=== PATIENT | male | born 1975 | race Caucasian/White ===

== ENCOUNTER → 2019-09-19 | Outpatient (CLI) | payer BC ==
[~2019-09-19] MED LIST: ATOR40TA59 PO; CELE100C PO; IOHEXOL 180 MG/ML 10 ML VIAL. ONE; METO25TA4 PO; methylPREDNISolone ACETATE 40 MG/ML VIAL. ONE; methylPREDNISolone ACETATE 80 MG/ML VIAL. ONE
--- NOTE | 2019-09-19 11:32 | PAIN ---
DATE OF SERVICE: 09/19/2019 INITIAL CONSULTATION FOR PAIN CLINIC CHIEF COMPLAINT: Low back and left lower extremity pain. HISTORY OF PRESENT ILLNESS: This is a 44-year-old male who presents with history of pain in the low back, left lower extremity for many years, worse since 04/2019, gradually increasing, not a result of any specific injury or action he is aware of. The patient reports he has had 2 lumbar surgeries, one in 2018 and the other one in [address] Joselo Cochran, which did well with the time, but the pain has been returning now for about the past 5 months. The patient reports no loss of motor function, but significant fatigability of the left lower extremity. The patient describes the pain as constant, stabbing in the back, shooting and radiating into the left lower extremity, posterior gluteus, lateral thigh, anterior thigh, posterior thigh, posterior calf, and into the foot on the lateral aspect, worse with walking, standing, changing positions, better with sitting or lying down. The patient reports it awakens him from sleep at night at least once or twice, does not affect his bowel or bladder control or his ability to walk. The patient has had epidural injections in the past as well as chiropractic treatment more recently and doing exercise on his own, all of which have been helpful, but only temporarily with the exercise and the injections were helpful before the surgery. The patient reports he is taking Celebrex daily, which does decrease the pain, but only by about 25%. The patient did have MRI scan dated 09/05/2019 which shows previous surgery from L3-S1 with diffuse bulging annulus at L4-5 with focal central left paracentral disk protrusion, narrowing of the left lateral recess on the left. L5-S1 shows a focal left paracentral disk protrusion as well and narrowing of the left lateral recess. The patient reports no loss of function, but significant fatigability. He describes his disability rating from 0-10, 10 being the worst, as a 7 with family home responsibilities and recreation and life support activities, 6 with social activity and occupation, 5 with sexual behavior, and 4 with self-care activities. PAST MEDICAL HISTORY: Significant for arthritis and hyperlipidemia. PAST SURGICAL HISTORY: Includes right shoulder surgery in 1993, tonsillectomy in 2018, and lumbar surgery in 2013 and 2007. CURRENT MEDICATIONS: Include Celebrex, alprazolam, atorvastatin, and sildenafil. ALLERGIES: The patient has no known drug allergies. FAMILY HISTORY: Significant for no major medical conditions or history he is aware of. SOCIAL HISTORY: The patient does not smoke, but he is chewing tobacco for the past 20 years. He drinks alcohol about once a week. He does not use any illegal, illicit, or recreational drugs. He is , lives with his spouse, has 2 children living at home. 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 REVIEW OF SYSTEMS: The patient's review of systems is positive for those items mentioned in history of present illness. All systems reviewed and otherwise negative. It is complete, full and well documented on the patient's chart. PHYSICAL EXAMINATION: VITAL SIGNS: The patient's blood pressure 136/93, pulse 80, respirations 16, temperature is 98.2 degrees Fahrenheit, height is 73.5 inches, and weight is 251 pounds. GENERAL: The patient is awake, alert, oriented, appropriate, very pleasant demeanor. HEENT: Head shows normocephalic, atraumatic. Extraocular movements are intact and symmetrical. Oral cavity: Mucous membranes moist and pink. Dentition is intact. NECK: Shows anterior throat supple without palpable lymphadenopathy noted. Swallow reflex symmetrical. CHEST: Shows normal on inspection. Breath sounds are clear to auscultation bilaterally. HEART: Shows S1, S2 clear. No murmurs auscultated. ABDOMEN: Soft, nontender, nondistended. No palpable organomegaly is noted. No rebound or guarding demonstrated. BACK: Shows spine grossly in the midline. Normal-appearing thoracic kyphosis and flattening of lumbar lordotic curvature with well-healed surgical scarring noted in the midline. Lumbar paraspinous muscle shows symmetrical on inspection, with palpation shows some mild tenderness throughout the upper, middle and lower distribution of paraspinous muscles bilaterally, but only diffusely without radiation. The patient shows no trigger points. No atrophy or hypertrophy. No asymmetry, no tenderness over the spinous processes, sacrum or sacroiliac regions. The patient does show good rotational motion of lumbar spine, both laterally greater than 10 degrees right and left as well as extension greater than 10 degrees, forward flexion 45 degrees without significant difficulty. EXTREMITIES: The patient's lower extremities show deep tendon reflexes 2+ in the patellar, 1+ tendo-calcaneus tendons. Motor exam is approximately 4 on a scale of 5 on the left with dorsiflexion, extension, quadriceps and hamstring flexion and 5/5 on the right. Peripheral pulses are 1+ posterior tibia. No peripheral edema is noted. Lower extremities are warm and dry to touch, equal in color and appearance. Straight leg raising noted to be mildly positive on the left at about 35-40 degrees, decreased with knee flexion, right side is negative. Gaenslen's and Elmer maneuvers are negative bilaterally. The patient is able to stand, stand on his toes without difficulty or loss of balance, walks with a normal-appearing gait, does not appear to favor the right or left lower extremity significantly with ambulation. SKIN: Shows warm and dry, good turgor. No edema. No sores, rashes or bruising. IMPRESSION: 1. This is a 44-year-old male with approximate 5-month history of recently increasing pain, low back and into the left lower extremity. 2. MRI scan of lumbar spine as noted. 3. Arthritis. PLAN: Options were discussed with the patient including conservative medical managements, physical therapies, and interventional techniques and he would like to proceed with interventional technique. We discussed a lumbar epidural steroid injection using descriptions as well as anatomical models to describe the procedure. Risks were then discussed including, but not limited to bleeding, infection, possibility of epidural hematoma, subsequent neurological compromise, dural puncture, headaches, spinal cord and/or nerve damage, side effects of steroid medication and poor results regarding pain control. The patient understands and wished to proceed. The patient will return to clinic in approximately 2 weeks for followup. He was counseled as to the return appointment, activity levels, and side effects to be aware of. DIAGNOSES: Lumbar radiculopathy with lumbar degenerative disk disease, lumbar spinal stenosis, and lumbar post-laminectomy syndrome. Treated with lumbar epidural steroid injection, translaminar approach at the L5-S1 level using C-arm fluoroscopic guidance under sterile prep and drape using local anesthetic. MEDICATION INJECTED: A total of 120 mg Depo-Medrol plus 10 mL of preservative-free normal saline and 2 mL of contrast. CONDITION AT DISCHARGE: Stable. The patient tolerated the procedure well, had no complications. TIM CAMPBELL MD DR: Miguel JOB#: [id number] / [id number] ecc ,
== END ==
LOC: PNCL 08:03
PROVIDERS: ATTEND Anesthesiology
DX: M51.16 Intervertebral disc disorders with radiculopathy, lumbar region (principal); M48.061 Spinal stenosis, lumbar region without neurogenic claudication; M96.1 Postlaminectomy syndrome, not elsewhere classified; E78.5 Hyperlipidemia, unspecified; Z87.39 Personal history of other diseases of the musculoskeletal system and connective tissue; Z98.890 Other specified postprocedural states; Z72.89 Other problems related to lifestyle; Z87.891 Personal history of nicotine dependence
CPT/HCPCS: 62323; J1030; J1040; Q9965

== ENCOUNTER → 2019-10-03 | Outpatient (CLI) | payer BC ==
--- NOTE | 2019-10-03 09:02 | PAIN ---
DATE OF SERVICE: 10/03/2019 PROGRESS NOTE FOR PAIN CLINIC DIAGNOSES: Lumbar radiculopathy with lumbar degenerative disk disease and lumbar spinal stenosis, lumbar post-laminectomy syndrome. HISTORY OF PRESENT ILLNESS: The patient is a 44-year-old male who returns for followup status post lumbar epidural steroid injection x 1. The patient reports about 25% improvement in the low back and left lower extremity. The patient reports there has been increase in activity with greater ease and comfort, walking greater distances and sleeping better, occasionally awakens him from sleep but very rarely now. The patient reports still some pain in the low back and left leg, it does not travel quite as far in the left leg only to the mid calf and into the foot as it was previously and across the low back into the posterior gluteus on the left, posterior thigh and calf to mid calf. The patient reported aching and dull, radiating, worse with walking, standing, changing positions, again better with sitting or lying down. The patient has recently purchased a traction device, which he reports he has been using at home and does believe this is helpful as well. The patient reports pain is 7 on a scale of 10 at its worst over the past week, 5 on average, 1 at its least and is a 5 today. The patient reports no new motor or sensory deficits, no new bowel or bladder incontinence or other complaints. PHYSICAL EXAMINATION: VITAL SIGNS: The patient's blood pressure 140/90, pulse 67, respirations 20, temperature 98.2 degrees Fahrenheit, weight is 251 pounds. GENERAL: The patient is awake, alert, oriented, appropriate, very pleasant demeanor. HEENT: Shows normocephalic, atraumatic. Extraocular movements are intact and symmetrical. Oral cavity: Mucous membranes moist and pink. Dentition is intact. NECK: Shows anterior throat supple without palpable lymphadenopathy noted. Swallow reflex symmetrical. CHEST: Shows normal on inspection. Breath sounds are clear bilaterally. HEART: Shows S1, S2 clear. ABDOMEN: Soft, nontender, nondistended. No palpable organomegaly is noted. No rebound or guarding demonstrated. BACK: Shows spine grossly in the midline. Normal appearing thoracic kyphosis and flattening of lumbar lordotic curvature with well-healed surgical scar noted. Lumbar paraspinous muscle shows symmetrical on inspection, with palpation shows some moderate tenderness diffusely without radiation. The patient has good rotational motion of the lumbar spine, both laterally as well as extension and flexion without significant increase in pain. EXTREMITIES: Lower extremities show deep tendon reflexes 2+ in the patellar, 1+ in the tendo-calcaneus tendons. Motor exam is 4 on a scale of 5 on the left with dorsiflexion, extension, 5/5 on the right. Peripheral pulses are 1+ posterior tibia. No peripheral edema bilaterally. Options were discussed with the patient. The patient's old chart was reviewed as his current medication regimen updated. Current review of systems updated today as well. We will proceed with a second in a series of lumbar epidural steroid injection today with fluoroscopic guidance. Risks were again discussed including, but not limited to bleeding, infection, possibility of epidural hematoma, subsequent neurological compromise, dural puncture, headaches, spinal cord and/or nerve damage, side effects of steroid medication and poor results regarding pain control. The patient understands and wished to proceed. The patient will return to clinic in approximately 2 weeks for followup. She was counseled on return appointment, activity level and side effects to be aware of. DIAGNOSIS: Lumbar radiculopathy with lumbar degenerative disk disease, lumbar spinal stenosis and lumbar post-laminectomy syndrome. PROCEDURE: Lumbar epidural steroid injection, translaminar approach L5-S1 level using C-arm fluoroscopic guidance under sterile prep and drape using local anesthetic. MEDICATION INJECTED: A total of 120 mg Depo-Medrol plus 10 mL of preservative-free normal saline and 2 mL of contrast. CONDITION AT DISCHARGE: Stable. The patient tolerated procedure well, had no complications. TIM CAMPBELL MD DR: LOCO/karissa JOB#: [id number] / [id number]
== END ==
LOC: PNCL 08:03
PROVIDERS: ATTEND Anesthesiology
DX: M51.16 Intervertebral disc disorders with radiculopathy, lumbar region (principal); M48.061 Spinal stenosis, lumbar region without neurogenic claudication; M96.1 Postlaminectomy syndrome, not elsewhere classified
CPT/HCPCS: 62323; J1030; J1040; Q9965